=== PATIENT | male | born 1970 | race Caucasian/White ===

== ENCOUNTER 2019-06-30 20:22 | Emergency (ER) | payer BC ==
[~2019-06-30] VITALS: Ht 185.4 cm; Wt 123.4 kg
[2019-06-30 21:01] VITALS: BP 148/98
[2019-06-30] MEDS ORDERED: FLUORESCEIN SOD 1 MG TEST STRIP LEFTEYE ONE (22:30)
[2019-06-30] MEDS ORDERED: TETRACAINE HCL 0.5% OPTH(EYE) SOLN 4ML LEFTEYE ONE (22:30)
== END 2019-07-01 00:43 | disposition home or self-care (01) ==
LOC: ER 20:26
DX: H57.12 Ocular pain, left eye (principal)